=== PATIENT | male | born 2000 | race African-American/Black ===

== ENCOUNTER 2022-07-10 14:47 | Emergency (ER) | payer OTHER ==
[2022-07-10 14:56] VITALS: BP 159/63
--- NOTE | 2022-07-10 15:31 | ED Physician Documentation ---
History of Present Illness - Stated complaint Stated Complaint: MALE - Chief complaint Chief Complaint: General - History obtained from History obtained from: Patient - History of Present Illness Timing: How many days ago (2) Pain level max: 4 Pain level now: 3 - Additonal information Additional information: 22-year-old male presents to the emergency department with left-sided testicular pain x2 days. He states he is not sexually active. No penile discharge. Nothing makes it better or worse. He states that it feels swollen. Denies any recent trauma. Patient has no urinary symptoms. No dysuria. No urinary frequency. No hematuria Review of Systems Constitutional: denies: Fever, Chills GI: denies: Nausea, Vomiting, Diarrhea Skin: denies: Rash Musculoskeletal: denies: Neck pain, Back pain Neurologic: denies: Headache PD PAST MEDICAL HISTORY - Past Medical History Past Medical History: No - Past Surgical History Past Surgical History: No - Present Medications Home Medications: Ambulatory Orders Medication Instructions Recorded Confirmed No Known Home Medications 07/10/22 07/10/22 - Allergies Allergies/Adverse Reactions: Allergies Allergy/AdvReac Type Severity Reaction Status Date / Time No Known Drug Allergies Allergy Verified 07/10/22 14:56 - Living Situation Living Arrangement: reports: At home - Social History Does the pt have substance abuse?: No - Family History Family history: reports: Non contributory PD ED PE NORMAL - Vitals Vital signs reviewed: Yes - General General: Alert and oriented X 3, No acute distress, Well developed/nourished - HEENT HEENT: Moist mucous membranes - Neck Neck: Supple, no meningeal sign - Cardiac Cardiac: RRR, Strong equal pulses - Respiratory Respiratory: No respiratory distress, Clear bilaterally - Abdomen Abdomen: Soft, Non tender, Non distended - Male Male : Other (normal testicular exam B. no swelling. no tenderness. no penile discharge. no lesions.) - Derm Derm: Warm and dry - Neuro Neuro: Alert and oriented X 3 - Psych Psych: Normal mood, Normal affect Results - Vitals Vitals: Vital Signs - 24 hr 07/10/22 14:53 Temperature 36.3 C L Heart Rate 68 Respiratory 16 Rate Blood Pressure 159/63 H O2 Saturation 98 Oxygen O2 Source Room air - Labs Labs: Laboratory Tests 07/10/22 07/10/22 15:36 15:36 Urine Color YELLOW Urine Clarity CLEAR Urine pH 6.0 Ur Specific [place] 1.020 Urine Protein NEGATIVE Urine Glucose (UA) NEGATIVE Urine Ketones NEGATIVE Urine Occult Blood NEGATIVE Urine Nitrite NEGATIVE Urine Bilirubin NEGATIVE Urine Urobilinogen 0.2 (NORMAL) Ur Leukocyte Esterase NEGATIVE Ur Microscopic Review NOT INDICATED Urine Culture Comments NOT INDICATED Chlam trachomat DNA PCR NEGATIVE N.gonorrhoeae DNA (PCR) NEGATIVE T. vaginalis (PCR) TNP - Rads (name of study) Testicular ultrasound Radiology: Final report received, See rad report (No acute abnormality) PD Medical Decision Making - ED course Complexity details: reviewed results, re-evaluated patient, considered differential, d/w patient ED course: 22-year-old male with left testicular pain x2 days of unclear etiology. Not sexually active. Normal examination. Normal ultrasound. Normal urinalysis. No evidence of torsion. We will have him follow-up with his doctor for further care. Patient counseled regarding signs and symptoms for which I believe and urgent re-evaluation would be necessary. Patient with good understanding of and agreement to plan and is comfortable going home at this time This document was made in part using voice recognition software. While efforts are made to proofread this document, sound alike and grammatical errors may occur. Departure - Departure Disposition: 01 Home, Self Care Clinical Impression: Testicular pain, left Condition: Good Instructions: ED Testicular Pain [facility] Follow-Up: your,doctor in 1 week [Other] Comments: Your urinalysis and ultrasound of your testicles are both normal today. The cause of your symptoms is unclear. [place] Please call for appointment tomorrow. You can use Motrin and/or Tylenol as needed for pain. Return if you worsen Discharge Date/Time: 07/10/22 17:56
[2022-07-10 15:45] LABS: BILIRUBIN,URINE NEGATIVE (NEGATIVE); GLUCOSE, URINE (UA) NEGATIVE (NEGATIVE); KETONES,URINE (UA) NEGATIVE (NEGATIVE); LEUKOCYTE ESTERASE, URINE NEGATIVE (NEGATIVE); NITRITE,URINE NEGATIVE (NEGATIVE); OCCULT BLOOD,URINE NEGATIVE (NEGATIVE); PROTEIN,URINE NEGATIVE (NEGATIVE); UROBILINOGEN,URINE 0.2 (NORMAL) E.U./dL (NORMAL)
[2022-07-10 15:46] LABS: CLARITY,URINE CLEAR (CLEAR)
--- NOTE | 2022-07-10 16:52 | Ultrasound Report ---
PROCEDURE: Testicle w/Doppler INDICATIONS: L testicular pain x 2 days TECHNIQUE: Real-time scanning was performed of the scrotum and testicles, with image documentation. Color and p ulse Doppler interrogation was performed of both testicles. COMPARISON: None. FINDINGS: Right testicle measures 4 x 1.8 x 2.4 cm. Echotexture is homogenous. Color and spectral flows are doc umented. No significant hydrocele. Epididymis is within normal limits. No varicocele. Left testicle measures 4 x 1.9 x 2.4 cm. Echotexture is homogenous. Color and spectral flows are docu mented. No significant hydrocele. Epididymis is within normal limits. No varicocele. IMPRESSION: No sonographic abnormality identified. Reviewed by: González Pollard MD on 07/10/2022 3:51 PM [facility] Approved by: González Pollard MD on 07/10/2022 3:51 PM [facility] Station ID: [id number]
[2022-07-10 18:21] LABS: CHLAMYDIA TRACHOMATIS DNA NEGATIVE (NEGATIVE); NEISSERIA GONORRHOEAE DNA NEGATIVE (NEGATIVE)
== END 2022-07-10 17:56 | disposition home or self-care (01) ==
LOC: ED 14:47
DX: N50.812 Left testicular pain (principal)
CPT/HCPCS: 81001; 81003; 87086; 87491; 87591; 87661; 93975; 99282; 99284

== ENCOUNTER 2023-01-04 10:40 | Emergency (ER) | payer OTHER ==
[2023-01-04] MEDS ORDERED: KETOROLAC 30 MG/ML VIAL IM STA (12:03)
--- NOTE | 2023-01-04 12:13 | ED Physician Documentation ---
History of Present Illness - Stated complaint Stated Complaint: BACK PX - Chief complaint Chief Complaint: Back Pain - Additonal information Additional information: 22-year-old male presents emergency department for evaluation of mid lumbar back pain that he reports began about 2 months ago. States that there was no inciting falls or trauma. No saddle anesthesia no loss of bowel or bladder function. No fevers, no night sweats or weight loss. No history of diabetes or injection drug use. He has tried some gentle stretching. However he is never taken any [id number] medications for this pain. Reports this morning he woke up and the pain was so severe he could not get out of bed. He took nothing for the pain and his partner has driven him to the ER. Pain does not radiate Review of Systems Constitutional: denies: Fever, Chills Throat: reports: Reviewed and negative Cardiac: reports: Reviewed and negative Respiratory: reports: Reviewed and negative GI: reports: Reviewed and negative : reports: Reviewed and negative Musculoskeletal: reports: Back pain. denies: Extremity pain, Joint pain, Extremity swelling PD PAST MEDICAL HISTORY - Past Medical History Past Medical History: No - Past Surgical History Past Surgical History: No - Present Medications Home Medications: Ambulatory Orders Medication Instructions Recorded Confirmed No Known Home Medications 07/10/22 01/04/23 - Allergies Allergies/Adverse Reactions: Allergies Allergy/AdvReac Type Severity Reaction Status Date / Time No Known Drug Allergies Allergy Verified 01/04/23 11:01 - Social History Does the pt smoke?: No Smoking Status: Never smoker Does the pt drink ETOH?: No Does the pt have substance abuse?: No - Immunizations Immunizations are current?: Yes PD ED PE NORMAL - General General: Alert and oriented X 3, No acute distress, Well developed/nourished - HEENT HEENT: Atraumatic, Moist mucous membranes - Cardiac Cardiac: RRR, No murmur - Back Back: No CVA TTP, No spinal TTP (No tenderness elicited with palpation of the thoracic or lumbar spinous processes. Full range of motion of the thorax and lower lumbar spine. Normal gait. Motor strength 5 of 5 BLE. Able to raise on heels and toes. No paresthesias.) Results - Vitals Vitals: Vital Signs - 24 hr 01/04/23 10:58 Temperature 36.5 C Heart Rate 55 L Respiratory 16 Rate Blood Pressure 139/68 H O2 Saturation 98 Oxygen O2 Source Room air PD Medical Decision Making - ED course Complexity details: d/w patient ED course: 22-year-old male who is active [employer] presents to the emergency department for evaluation of back pain that he reports began about 2 to 3 months ago. He however has taken no medications for it. He has no clinical red flags. His exam was unremarkable. He did not have any tenderness with palpation or percussion of the back. He has a normal gait normal motor strength. No loss of function or sensation. Given the lack of red flags high discussed with patient typical conservative care measures for back pain. He was administered 30 mg of Toradol IM here in the ER which she reported improved the pain. He is advised to follow-up with [facility]. I am recommending Tylenol and ibuprofen for discomfort. The usual emergent return precautions were discussed Departure - Departure Disposition: 01 Home, Self Care Clinical Impression: Back pain Qualifiers: Back pain location: back pain in unspecified location Chronicity: unspecified Back pain laterality: midline Qualified Code(s): M54.89 - Other dorsalgia Instructions: ED Neck Back Pain General Comments: Kit you are seen today in the emergency department because for several months you have been having some back pain that was worse than usual this morning. As discussed at the bedside your exam was very normal. Most people will have bouts of back pain. Typically we recommend conservative treatment with 500 mg of Tylenol 2 or 3 times a day or alternating with 600 mg of ibuprofen also taken 2-3 times a day. I recommend you follow closely with [facility] to discuss this ED visit. You may benefit from referral to physical therapy. Reasons to return to the emergency department would be the development of any numbness in your genital area, loss of control of your bowel or bladder function, sudden weakness in your legs, any fevers, night sweats and weight loss
[2023-01-04] MEDS ORDERED: KETOROLAC 30 MG/ML VIAL ONE (12:20)
[2023-01-04 12:33] VITALS: BP 130/61
== END 2023-01-04 12:28 | disposition home or self-care (01) ==
LOC: ED 10:40
DX: M54.89 Other dorsalgia (principal)
CPT/HCPCS: 99283

== ENCOUNTER 2023-01-27 13:20 | Outpatient (CLI) | payer OTHER ==
--- NOTE | 2023-01-27 18:15 | XRAY Report ---
PROCEDURE: Wrist 2 View LT INDICATIONS: SPRAIN TECHNIQUE: 3 views of the wrist were acquired. COMPARISON: None. FINDINGS: Bones: No displaced fracture. No dislocation. Soft tissues: No suspicious calcifications. IMPRESSION: No acute radiographic osseous abnormality. If there is high concern for further derangement, consider MRI evaluation. Reviewed by: González Pollard MD on 01/27/2023 6:14 PM PDT Approved by: González Pollard MD on 01/27/2023 6:14 PM PDT Station ID: [id number]
== END 2023-01-27 13:21 | disposition home or self-care (01) ==
LOC: DI 13:20
PROVIDERS: ATTEND Nurse Practitioner
DX: S63.592A Other specified sprain of left wrist, initial encounter (principal)

== ENCOUNTER 2023-03-24 12:57 | Outpatient (CLI) | payer OTHER ==
--- NOTE | 2023-03-24 14:43 | XRAY Report ---
PROCEDURE: Lumbar Spine 2 View INDICATIONS: BACK PAIN LOW TECHNIQUE: 2 views of the lumbar spine were acquired. COMPARISON: None. FINDINGS: Bones: 5 [id number] vertebrae are present. Mild levocurvature of the lumbar spine. No vertebra l body compression fractures. No suspicious bony lesions. Soft tissues: Overlying bowel gas pattern is normal. No suspicious soft tissue calcifications. IMPRESSION: Mild levocurvature of the lumbar spine, may be positional. Otherwise, normal lumbar spin e x-ray. Reviewed by: Jeremy Martinez MD on 03/24/2023 2:42 PM PDT Approved by: Jeremy Martinez MD on 03/24/2023 2:42 PM PDT Station ID: [id number]
== END 2023-03-24 12:58 | disposition home or self-care (01) ==
LOC: DI 12:57
PROVIDERS: ATTEND Family Medicine
DX: M54.50 Low back pain, unspecified (principal)

== ENCOUNTER 2023-08-14 14:23 | Emergency (ER) | payer OTHER ==
[2023-08-14 14:32] VITALS: O2SAT 100
--- NOTE | 2023-08-14 14:39 | ED Physician Documentation ---
PD HPI HEENT - Stated complaint Stated Complaint: FB IN THROAT - Chief complaint Chief Complaint: Heent - History obtained from History obtained from: Patient - History of Present Illness Timing - onset: Today Timing - duration: Hours (an hour or so ago) Timing - details: Abrupt onset (he was eating a corn dog on a stick and bit into the dog, wiht some of the stick splintering. He felt it as he started chewing and pulled out the hard pieces, but did not get all, so felt a pain/scrape feeling when he swallowed the rest of the bite. Pain still right throat. Normal voice.), Still present Location: Throat Associated symptoms: No: Fever, Congestion Similar symptoms before: Has not had sx before Review of Systems Constitutional: denies: Fever, Chills Nose: denies: Rhinorrhea / runny nose, Congestion Respiratory: denies: Cough PD PAST MEDICAL HISTORY - Past Medical History Past Medical History: No - Past Surgical History Past Surgical History: No - Present Medications Home Medications: Ambulatory Orders Medication Instructions Recorded Confirmed No Known Home Medications 07/10/22 08/14/23 - Allergies Allergies/Adverse Reactions: Allergies Allergy/AdvReac Type Severity Reaction Status Date / Time No Known Drug Allergies Allergy Verified 08/14/23 14:28 - Social History Does the pt smoke?: No Smoking Status: Never smoker Does the pt drink ETOH?: No Does the pt have substance abuse?: No - Immunizations Immunizations are current?: Yes PD ED PE NORMAL - Vitals Vital signs reviewed: Yes - General General: Alert and oriented X 3 (he does seem to wince slightly when swallowing saliva. Able to swallow though. ), No acute distress, Well developed/nourished - HEENT HEENT: Pharynx benign, Other (no stridor nor hoarseness.) - Neck Neck: Supple, no meningeal sign, No adenopathy, Other (palpation at the anterior neck at level of crocid and throid cartilage as well as just above that/(submandibular) without tenderness/sharp sensation. ) - Cardiac Cardiac: RRR, No murmur Results - Vitals Vitals: Vital Signs - 24 hr 08/14/23 08/14/23 08/14/23 14:24 14:28 16:04 Temperature 36.5 C 36.5 C 36.5 C Heart Rate 52 L 52 L 60 Respiratory 16 16 16 Rate Blood Pressure 128/58 L 128/58 L 124/60 O2 Saturation 100 100 100 Oxygen O2 Source Room air PD Medical Decision Making - ED course Complexity details: considered differential (he had swallowed bite of corndog with bitten off portion of the stick still in it as he swallowed it. Pain with swallowing right anterior neck/throat. Likely abrasion with tednerness. Consider residual FB. ), d/w patient ED course: Pt given lido GI cocktail and then lido neb to help decrease sensitivity in throat. dI then used the GlideScope fiber optic silke to look at the oropharyngeal area, down to visible view of the epiglottis and folds, adn the posterior pharynx to entry of esophagus at that same level. No obvious FB seen. The patient did pretty well at holding off gag reflex and I feel I got decent view to that level. Certainly small slivers could be missed, so discussed with him to f/u with ENT if not completely resolved in 1-2 days. Departure - Departure Disposition: 01 Home, Self Care Clinical Impression: Esophageal abrasion, Swallowed foreign body Condition: Stable Record reviewed to determine appropriate education?: Yes Follow-Up: [facility] [Provider Group] Comments: I did not see any obvious foreign body down to the level where you are feeling uncomfortable while using the scope. It did look perhaps like a small abrasion to the area. I would anticipate this improving in the next 1 to 2 days completely. Soft food only and lots of liquids overnight into tomorrow. No hard or firm foods to allow better healing. Tylenol ibuprofen if needed for discomfort. Recheck if not completely resolved in the next 1 to 2 days. I did provide the phone number for ear nose and throat specialty group that you could follow-up with if needed. They have similar and somewhat better instruments for looking in that area. Forms: PCP List Discharge Date/Time: 08/14/23 16:03
[2023-08-14] MEDS ORDERED: LIDOCAINE VISCOUS 2% 15 ML ORAL SYRINGE MM STA (14:53)
[2023-08-14] MEDS ORDERED: diphenhydrAMINE ELIXIR 25 MG/10 ML UDC PO STA (14:53)
[2023-08-14] MEDS ORDERED: LIDOCAINE TOPICAL 4% 50 ML BOTTLE MM STA (15:10)
[2023-08-14 16:12] VITALS: BP 124/60
== END 2023-08-14 16:03 | disposition home or self-care (01) ==
LOC: ED 14:23
DX: S27.818A Other injury of esophagus (thoracic part), initial encounter (principal); T18.128A Food in esophagus causing other injury, initial encounter; X58.XXXA Exposure to other specified factors, initial encounter
CPT/HCPCS: 94640; 99283; A9270